=== PATIENT | female | born 1955 | race Caucasian/White ===

== ENCOUNTER → 2017-08-12 | Day surgery (SDC) | payer BC ==
[~2017-08-12] MED LIST: Lactated Ringers 1,000 ML IV SCH; Propofol 200 MG/20 ML SDV IV ONE
--- NOTE | 2017-08-12 13:06 | OR ---
DATE OF OPERATION: 08/12/2017 PREOPERATIVE DIAGNOSIS: SCREENING COLONOSCOPY. POSTOPERATIVE DIAGNOSIS: SCREENING COLONOSCOPY. SURGEON: Jose De Jesus Salmeron MD PROCEDURE PERFORMED: Full-length colonoscopy. ANESTHESIA: CHIEF DRAFTER. COMPLICATIONS: None. SPECIMEN: None. FINDINGS: Normal full-length colonoscopy. RECOMMENDATIONS: Followup colonoscopy every 10 years. INDICATIONS: The patient had a prior colonoscopy in 5 years ago, which was incomplete due to poor prep. She has never had a full length screen. DESCRIPTION OF PROCEDURE: The patient was prepped and draped, placed in the left lateral decubitus position. A lubricated Olympus colonoscope was inserted and easily advanced to the cecum. Direct visualization of the ileocecal valve and appendiceal orifice was accomplished. The bowel prep was adequate. Still some stool throughout, but we were able to suction almost all of it. Upon withdrawal, throughout the entire length of the colon, no signs of any polyps, mass, ulceration, or bleeding sites. No vascular abnormalities or signs of colitis. There were no significant diverticula seen in the left colon. The rectal vault was benign. Retroflexion showed no perianal lesions. Air was suctioned. Scope was removed without complication. [place] /[id number]
== END ==
LOC: CC.SDS 10:26
PROVIDERS: ATTEND Family Medicine
DX: Z12.11 Encounter for screening for malignant neoplasm of colon (principal)
CPT/HCPCS: J7120

== ENCOUNTER 2022-02-23 18:00 | Observation (INO) | payer BC ==
[2022-02-23] MEDS ORDERED: Sodium Chloride 0.9% 1,000 ML IV STA (18:35)
[2022-02-23] MEDS ORDERED: Acetaminophen 325 MG Tab PO PRN (19:18)
[2022-02-23] MEDS ORDERED: Docusate Sodium 100 MG Cap PO PRN (19:19)
[2022-02-23] MEDS ORDERED: Ketorolac 30 MG/ML SDV IVPUSH ONE (19:19)
[2022-02-23] MEDS ORDERED: cefTRIAXone 2 GM Vial IVPUSH SCH (19:30)
[2022-02-23] MEDS ORDERED: Loratadine 10 MG Tab PO PRN (20:28)
[2022-02-24] MEDS ORDERED: Famotidine 20 MG Tab PO SCH (08:00)
[2022-02-24] MEDS ORDERED: Non-Formulary Medication 1 Each (Fish Oil/Omega-3 Fatty Acids [Fish Oil 1,000 Mg] 1 GM Cap PO SCH (08:00)
[2022-02-24] MEDS ORDERED: Losartan 25 MG Tab PO SCH (08:00)
[2022-02-24] MEDS ORDERED: Calcium Carbonate/Vitamin D3 1250 MG-5 MCG Tab PO SCH (08:00)
[2022-02-24] MEDS ORDERED: Ascorbic Acid 500 MG Tab PO SCH (08:00)
[2022-02-24] MEDS ORDERED: Vitamin B6-pyridOXINE 100 MG Tab PO SCH (08:00)
[2022-02-24] MEDS ORDERED: Cholecalciferol (Vitamin D3) 25 MCG Tab PO SCH (08:00)
[2022-02-24] MEDS ORDERED: Meloxicam 7.5 MG Tab PO SCH (08:00)
[2022-02-24] MEDS ORDERED: Metoprolol Succinate 25 MG Tab.ER PO SCH (08:00)
[2022-02-24] MEDS ORDERED: FISH OIL PO SCH (08:30)
[2022-02-24] MEDS ORDERED: FATTY ACIDS PO SCH (08:30)
[2022-02-24] MEDS ORDERED: OMEGA PO SCH (08:30)
[2022-02-24] MEDS ORDERED: MELOXICAM 15 MG PO SCH (08:34)
[2022-02-24] MEDS ORDERED: cefTRIAXone 2 GM Vial IVPUSH SCH (16:00)
== END 2022-02-24 16:45 | disposition home or self-care (01) ==
LOC: CC.MS 18:00 → UNDOADMOB 18:00 → CC.MS 19:19
PROVIDERS: ADMIT Physician Assistant Medical; ATTEND Physician Assistant Medical
DX: N12 Tubulo-interstitial nephritis, not specified as acute or chronic (principal); E66.9 Obesity, unspecified; Z68.32 Body mass index [BMI] 32.0-32.9, adult; Z79.899 Other long term (current) drug therapy; Z20.822 Contact with and (suspected) exposure to COVID-19
CPT/HCPCS: 36415; 83735; 87040; 87635; A9270; J0696; J1885; J7030; 96361; 96374; 96375; 96376; G0378; U0002

== ENCOUNTER 2022-06-06 09:37 | Emergency (ER) | payer BC ==
[2022-06-06] MEDS ORDERED: Cyclobenzaprine 10 MG Tab PO ONE (09:49)
[2022-06-06] MEDS ORDERED: Lidocaine 5% 700 MG Patch TRDERM ONE (10:21)
[2022-06-06] MEDS ORDERED: Take Home: Cyclobenzaprine 10 MG Tab, 4 Tab Pack PO ONE (10:24)
== END 2022-06-06 10:30 | disposition home or self-care (01) ==
LOC: CC.ED 09:37
DX: S76.012A Strain of muscle, fascia and tendon of left hip, initial encounter (principal); Z88.1 Allergy status to other antibiotic agents; Z91.018 Allergy to other foods; Z88.8 Allergy status to other drugs, medicaments and biological substances; Z87.891 Personal history of nicotine dependence; W10.8XXA Fall (on) (from) other stairs and steps, initial encounter
CPT/HCPCS: 81003; 99282; 99283; A9270-GY